=== PATIENT | male | born 1960 | race Caucasian/White ===

== ENCOUNTER 2017-10-23 16:03 | Inpatient (IN) | payer MEDICAID ==
[~2017-10-23] VITALS: Ht 165.1 cm; Wt 52.2 kg
[2017-10-23 16:09] VITALS: Ht 165.1 cm; Wt 52.2 kg
[2017-10-23 17:15] LABS: BASOPHIL % 1.6 % (0-2); PLATELET COUNT 282 x10^3mcL (130-400); RED CELL DISTRIBUTION WIDTH 13.6 % (11.5-14.5)
[2017-10-23 17:23] LABS: BILIRUBIN TOTAL 0.35 mg/dL (0.20-1.00); CALCIUM 8.7 mg/dL (8.5-10.1); CARBON DIOXIDE 20.2 mmol/L (21-32); POTASSIUM SERUM 3.5 mmol/L (3.5-5.1); TOTAL PROTEIN, SERUM 7.5 g/dL (6.4-8.2)
[2017-10-23 17:26] LABS: ALBUMIN 3.1 g/dL (3.4-5.0)
[2017-10-23 17:27] LABS: CREATININE SERUM 5.4 mg/dL (0.7-1.3)
[2017-10-23 19:42] VITALS: BP 101/59
[2017-10-23 21:08] VITALS: BP 94/58
[2017-10-23 21:37] LABS: CHOLESTEROL/HDL RATIO 2.9
[2017-10-23 21:40] LABS: T3 TOTAL 0.87 ng/mL
[2017-10-23 21:43] LABS: FREE T4 1.3 ng/dL (0.76-1.46); FREE THYROXINE INDEX 2.3 ug/dL (1.4-4.5); T4(THYROXINE) 6.8 ug/dL (4.7-13.3)
[2017-10-24 05:12] VITALS: BP 114/68
[2017-10-24 07:36] LABS: BASOPHIL % 0.5 % (0-2); PLATELET COUNT 289 x10^3mcL (130-400); RED CELL DISTRIBUTION WIDTH 13.7 % (11.5-14.5)
[2017-10-24 07:55] LABS: CALCIUM 8.2 mg/dL (8.5-10.1); CREATININE SERUM 2.3 mg/dL (0.7-1.3); MAGNESIUM 1.7 mg/dL (1.8-2.4); PHOSPHOROUS 2.8 mg/dL (2.5-4.9)
[2017-10-24 08:38] LABS: microscopic required? YES; urine erythrocyte TRACE (NEGATIVE)
[2017-10-24 08:57] LABS: AMPHETAMINE QUAL UR POSITIVE (See below)
[2017-10-24 10:03] VITALS: BP 126/72
[2017-10-24 13:33] VITALS: BP 126/72
== END 2017-10-24 14:54 | disposition home or self-care (01) | DRG 469 ==
LOC: ED 16:03 → DU 18:02 → ED 18:37 → DU 18:37
PROVIDERS: Emergency Medicine; Internal Medicine
DX: N17.0 Acute kidney failure with tubular necrosis (principal); E43 Unspecified severe protein-calorie malnutrition; E83.41 Hypermagnesemia; E86.0 Dehydration; E11.9 Type 2 diabetes mellitus without complications; D64.9 Anemia, unspecified; R55 Syncope and collapse; F32.9 Major depressive disorder, single episode, unspecified; Z68.1 Body mass index [BMI] 19.9 or less, adult; Z87.891 Personal history of nicotine dependence; Z79.4 Long term (current) use of insulin; Z63.4 Disappearance and death of family member
CPT/HCPCS: 82962; 83880; 84439; C9113; J2405; J7030; Q0092

== ENCOUNTER 2017-11-05 20:14 | Inpatient (IN) | payer MEDICAID ==
[~2017-11-05] VITALS: Ht 165.1 cm; Wt 52.8 kg
[2017-11-05 20:18] VITALS: Ht 165.1 cm; Wt 52.8 kg
[2017-11-05 21:07] LABS: BASOPHIL % 0.4 % (0-2); PLATELET COUNT 377 x10^3mcL (130-400); RED CELL DISTRIBUTION WIDTH 13.2 % (11.5-14.5)
[2017-11-05 21:15] LABS: CALCIUM 8.2 mg/dL (8.5-10.1); CARBON DIOXIDE 25.1 mmol/L (21-32); CREATININE SERUM 1.5 mg/dL (0.7-1.3); POTASSIUM SERUM 4.5 mmol/L (3.5-5.1)
[2017-11-05 21:20] LABS: BILIRUBIN TOTAL 0.34 mg/dL (0.20-1.00); TOTAL PROTEIN, SERUM 7.4 g/dL (6.4-8.2)
[2017-11-05 21:30] LABS: ALBUMIN 2.7 g/dL (3.4-5.0)
[2017-11-06] MEDS ORDERED: METFORMIN HYD1000 M2 (00:35)
[2017-11-06 00:47] LABS: UA SPECIFIC GRAVITY 1.015 (1.005-1.035); microscopic required? YES; urine erythrocyte 2+ (NEGATIVE)
[2017-11-06 01:52] LABS: CHOLESTEROL/HDL RATIO 2.1; MAGNESIUM 1.6 mg/dL (1.8-2.4); PHOSPHOROUS 3.3 mg/dL (2.5-4.9)
[2017-11-06 01:53] VITALS: BP 125/76
[2017-11-06 01:58] LABS: T3 TOTAL 0.72 ng/mL
[2017-11-06 02:02] LABS: FREE T4 1.51 ng/dL (0.76-1.46); FREE THYROXINE INDEX 2.4 ug/dL (1.4-4.5); T4(THYROXINE) 6.4 ug/dL (4.7-13.3)
[2017-11-06 05:03] VITALS: BP 111/61
[2017-11-06 09:30] VITALS: BP 107/66
[2017-11-06 13:18] VITALS: BP 113/64
[2017-11-06 18:06] VITALS: BP 119/70
[2017-11-06 21:14] VITALS: BP 142/70
[2017-11-07 05:33] VITALS: BP 127/71
[2017-11-07 07:08] LABS: ALBUMIN 2.3 g/dL (3.4-5.0); ALKALINE PHOSPHATASE 262 U/L (46-116); ALT/SGPT 31 U/L (16-63); AST/SGOT 39 U/L (15-37); BASOPHIL % 0.5 % (0-2); BILIRUBIN TOTAL 0.4 mg/dL (0.20-1.00); CALCIUM 7.5 mg/dL (8.5-10.1); CARBON DIOXIDE 23.4 mmol/L (21-32); CHLORIDE SERUM 107 mmol/L (98-107); CREATININE SERUM 1.1 mg/dL (0.7-1.3); GFR1 > 60 mL/min; GLUCOSE SERUM 110 mg/dL (74-106); MAGNESIUM 1.5 mg/dL (1.8-2.4); PHOSPHOROUS 2.6 mg/dL (2.5-4.9); POTASSIUM SERUM 4.6 mmol/L (3.5-5.1); RED CELL DISTRIBUTION WIDTH 13.3 % (11.5-14.5); SODIUM SERUM 138 mmol/L (136-145)
[2017-11-07 07:09] LABS: PLATELET COUNT 412 x10^3mcL (130-400)
[2017-11-07 13:58] VITALS: BP 113/66
[2017-11-07 17:17] VITALS: BP 152/83
[2017-11-07 21:09] VITALS: BP 150/88
[2017-11-08 06:07] VITALS: BP 137/74
[2017-11-08 06:36] LABS: ALKALINE PHOSPHATASE 375 U/L (46-116); ALT/SGPT 44 U/L (16-63); AST/SGOT 50 U/L (15-37); BILIRUBIN TOTAL 0.4 mg/dL (0.20-1.00); CALCIUM 7.3 mg/dL (8.5-10.1); CARBON DIOXIDE 26.3 mmol/L (21-32); CHLORIDE SERUM 103 mmol/L (98-107); CREATININE SERUM 1.1 mg/dL (0.7-1.3); GFR1 > 60 mL/min; GLUCOSE SERUM 265 mg/dL (74-106); MAGNESIUM 1.4 mg/dL (1.8-2.4); POTASSIUM SERUM 4.3 mmol/L (3.5-5.1); SODIUM SERUM 135 mmol/L (136-145); TOTAL PROTEIN, SERUM 6.9 g/dL (6.4-8.2)
[2017-11-08 06:42] LABS: BASOPHIL % 0.6 % (0-2); PLATELET COUNT 395 x10^3mcL (130-400); RED CELL DISTRIBUTION WIDTH 13.4 % (11.5-14.5)
[2017-11-08 06:50] LABS: ALBUMIN 2.2 g/dL (3.4-5.0)
[2017-11-08] MEDS ORDERED: LAC PO (09:34)
[2017-11-08] MEDS ORDERED: BACTRIM DS1 TAB PO (09:34)
[2017-11-08 09:45] VITALS: BP 147/77
[2017-11-08 11:25] VITALS: BP 136/71
== END 2017-11-08 12:45 | disposition left against medical advice (07) | DRG 305 ==
LOC: ED 20:14 → DU 11-06 00:37
PROVIDERS: Emergency Medicine; Internal Medicine
PROC: 0JBR0ZZ Excision of Left Foot Subcutaneous Tissue and Fascia, Open Approach (ICD-10-PCS; 2017-11-06)
PROC: 0Y6N0ZB Detachment at Left Foot, Partial 2nd Ray, Open Approach (ICD-10-PCS; principal; 2017-11-07 07:30)
DX: E11.621 Type 2 diabetes mellitus with foot ulcer (principal); N17.0 Acute kidney failure with tubular necrosis; E43 Unspecified severe protein-calorie malnutrition; E11.65 Type 2 diabetes mellitus with hyperglycemia; M86.672 Other chronic osteomyelitis, left ankle and foot; E83.42 Hypomagnesemia; E11.69 Type 2 diabetes mellitus with other specified complication; E11.42 Type 2 diabetes mellitus with diabetic polyneuropathy; L97.525 Non-pressure chronic ulcer of other part of left foot with muscle involvement without evidence of necrosis; I10 Essential (primary) hypertension; Z68.1 Body mass index [BMI] 19.9 or less, adult; L03.032 Cellulitis of left toe; D64.9 Anemia, unspecified; F17.210 Nicotine dependence, cigarettes, uncomplicated; Z79.84 Long term (current) use of oral hypoglycemic drugs
CPT/HCPCS: 82962; 83880; 84439; 90715; J1170; J1644; J1885; J2250; J2270; J2543; J2704; J3010; J3370; J3490; J7030; J7050; J7070; Q0092

== ENCOUNTER 2017-11-18 23:24 | Emergency (ER) | payer MEDICAID ==
[~2017-11-18 23:24] MED LIST: BACTRIM DS1 TAB PO; LAC PO; METFORMIN HYD1000 M2
[2017-11-19 06:30] VITALS: BP 141/71
== END 2017-11-19 04:00 | disposition home or self-care (01) ==
LOC: ED 23:24
DX: E11.649 Type 2 diabetes mellitus with hypoglycemia without coma (principal); I12.0 Hypertensive chronic kidney disease with stage 5 chronic kidney disease or end stage renal disease; N18.6 End stage renal disease; Z98.890 Other specified postprocedural states
CPT/HCPCS: 82962; J3490

== ENCOUNTER 2018-03-17 09:59 | Emergency (ER) | payer MEDICAID ==
[~2018-03-17] VITALS: Ht 165.1 cm; Wt 55.3 kg
[2018-03-17 10:08] VITALS: BP 148/95; Ht 165.1 cm; Wt 55.3 kg
== END 2018-03-17 10:33 | disposition left against medical advice (07) ==
LOC: ED 09:59
DX: S61.207A Unspecified open wound of left little finger without damage to nail, initial encounter (principal); L08.9 Local infection of the skin and subcutaneous tissue, unspecified; W20.8XXA Other cause of strike by thrown, projected or falling object, initial encounter; Y93.89 Activity, other specified; Y99.8 Other external cause status; Y92.89 Other specified places as the place of occurrence of the external cause

== ENCOUNTER 2018-05-07 15:02 | Emergency (ER) | payer MEDICAID ==
[~2018-05-07] VITALS: Ht 165.1 cm; Wt 54.0 kg
[2018-05-07 15:23] VITALS: Ht 165.1 cm; Wt 54.0 kg
[2018-05-07 16:07] LABS: BASOPHIL % 0.3 % (0-2); RED CELL DISTRIBUTION WIDTH 14.4 % (11.5-14.5)
[2018-05-07 16:10] LABS: PLATELET COUNT 574 x10^3mcL (130-400)
[2018-05-07 16:19] LABS: UA SPECIFIC GRAVITY 1.015 (1.005-1.035); microscopic required? YES; urine erythrocyte 3+ (NEGATIVE)
[2018-05-07 16:43] LABS: ALKALINE PHOSPHATASE 130 U/L (46-116); ALT/SGPT 19 U/L (16-63); AST/SGOT 22 U/L (15-37); BILIRUBIN TOTAL 0.31 mg/dL (0.20-1.00); CALCIUM 7.9 mg/dL (8.5-10.1); CARBON DIOXIDE 22.9 mmol/L (21-32); CHLORIDE SERUM 91 mmol/L (98-107); CREATININE SERUM 1.7 mg/dL (0.7-1.3); GFR1 45 mL/min; POTASSIUM SERUM 4.7 mmol/L (3.5-5.1); TOTAL PROTEIN, SERUM 7.9 g/dL (6.4-8.2)
[2018-05-07 16:44] LABS: ALBUMIN 2.1 g/dL (3.4-5.0)
[2018-05-07 16:45] LABS: GLUCOSE SERUM 567 mg/dL (74-106); SODIUM SERUM 124 mmol/L (136-145)
[2018-05-07 20:02] VITALS: BP 87/54
== END 2018-05-07 20:02 | disposition short-term general hospital (02) ==
LOC: ED 15:02
PROVIDERS: Emergency Medicine
DX: L02.512 Cutaneous abscess of left hand (principal); L03.114 Cellulitis of left upper limb; J10.1 Influenza due to other identified influenza virus with other respiratory manifestations; A41.9 Sepsis, unspecified organism; E11.65 Type 2 diabetes mellitus with hyperglycemia; E11.22 Type 2 diabetes mellitus with diabetic chronic kidney disease; I12.9 Hypertensive chronic kidney disease with stage 1 through stage 4 chronic kidney disease, or unspecified chronic kidney disease; N18.9 Chronic kidney disease, unspecified; D64.9 Anemia, unspecified; Z89.022 Acquired absence of left finger(s); Z98.890 Other specified postprocedural states
CPT/HCPCS: 87804; J2543; J3370; J7030; J7050; Q0092